=== PATIENT | male | born 1975 | race Caucasian/White ===

== ENCOUNTER 2019-12-11 18:41 | Observation (INO) ==
[2019-12-11] MEDS ORDERED: NICOTINE 21 MG/24 HR PATCH TRANSDERM PRN (22:21)
[2019-12-11] MEDS ORDERED: DEXTROSE 50% 25 GM/50 ML VIAL IV PRN (22:21)
[2019-12-11] MEDS ORDERED: MORPHINE 4 MG/1 ML VIAL IV PRN (22:21)
[2019-12-11] MEDS ORDERED: GLUCAGON 1 MG VIAL IM PRN (22:21)
[2019-12-11] MEDS ORDERED: diphenhydrAMINE CAP 25 MG CAPSULE PO PRN (22:21)
[2019-12-11] MEDS ORDERED: guaiFENesin/DM ER 600-30 MG TABLET PO PRN (22:21)
[2019-12-11] MEDS ORDERED: ONDANSETRON 4 MG/2 ML VIAL IV PRN (22:21)
[2019-12-11] MEDS ORDERED: hydrALAZINE 20 MG/1 ML VIAL IV PRN (22:21)
[2019-12-11] MEDS ORDERED: ACETAMINOPHEN 325 MG TABLET PO PRN (22:21)
[2019-12-11 23:35] LABS: Basophils # 0.1 10*3/uL (0.0-0.2); Basophils % 0.6 % (0.0-0.8); Eosinophils # 0.5 10*3/uL (0.0-0.87); Eosinophils % 6.2 % (0.00-10.9); Hematocrit 36.9 VOL% (42.0-52.0); Hemoglobin 12.6 GM/DL (14.0-18.0); Immature Granulocytes % 0.2 %; Immature Granulocytes Absolute 0.02 #; Lymphocytes # 4.1 10*3/uL (1.4-4.0); Lymphocytes % 49.2 % (21.2-54.2); Mean Corpuscular HGB Conc 34.1 GM/DL (32-36); Mean Corpuscular Volume 94.9 FL (87-102); Mean Platelet Volume 9.2 FL (9.6-12.0); Neutrophils % 37.8 % (38.7-73.9); Platelet Count 203 T/CUMM (130-400); Red Blood Count 3.89 MC/CUMM (3.8-5.5); Red Cell Distribution Width 13.1 % (9.3-17.3); White Blood Count 8.4 T/CUMM (4-12)
[2019-12-11 23:56] LABS: Albumin 3.7 G/DL (3.4-5.0); Bilirubin,Total 0.7 MG/DL (0.2-1.0); Calcium 8.8 MG/DL (8.5-10.1); Osmolality,Calculated 271.7 MOS/KG (273-304); Risk Ratio 3.29; Thyroid Stimulating Hormone 2.26 uIU/ml (0.358-3.74); VLDL CHOLESTEROL 20.2 MG/DL
[2019-12-11 23:57] LABS: Band Neutrophils 1 % (0-10); Eosinophils 5 % (0-10); Lymphocytes 45 % (20-55); Platelet Estimate Normal; Segmented Neutrophils 46 % (50-85); Total Cells Counted 100
[2019-12-12] MEDS: ALBUTEROL/IPRATROPIUM 3 ML NEB RESP TX SCH ×4 (00:42→19:45)
[2019-12-12] MEDS: ASPIRIN 325 MG TABLET PO SCH (08:25)
[2019-12-12 13:27] LABS: Bilirubin,Urine Negative (Negative); Blood, Urine Negative (Negative); Glucose,Urine (UA) Negative (Negative); Ketones,Urine Negative (Negative); Mucus,Urine Occasional /LPF (Occasional); Nitrite,Urine Negative (Negative); Protein,Urine Negative; RBC,Urine <1 /HPF (0-4); Urine Appearance CLEAR (Clear); Urine Color Yellow (Yellow); Urine Specific Gravity 1.017 (1.001-1.035); WBC,Urine <1 /HPF (0-6)
[2019-12-12] MEDS ORDERED: MELATONIN 3 MG TABLET PO PRN (17:58)
[2019-12-13 06:01] LABS: Basophils # 0.1 10*3/uL (0.0-0.2); Basophils % 0.6 % (0.0-0.8); Eosinophils # 0.6 10*3/uL (0.0-0.87); Eosinophils % 6.9 % (0.00-10.9); Hematocrit 37.5 VOL% (42.0-52.0); Hemoglobin 12.8 GM/DL (14.0-18.0); Immature Granulocytes % 0.5 %; Immature Granulocytes Absolute 0.04 #; Lymphocytes # 3.3 10*3/uL (1.4-4.0); Lymphocytes % 41.2 % (21.2-54.2); Mean Corpuscular HGB Conc 34.1 GM/DL (32-36); Mean Corpuscular Volume 96.2 FL (87-102); Mean Platelet Volume 9.3 FL (9.6-12.0); Monocytes % 5.1 % (1.7-12.7); Neutrophils % 45.7 % (38.7-73.9); Platelet Count 206 T/CUMM (130-400); Red Cell Distribution Width 13.2 % (9.3-17.3); White Blood Count 8.1 T/CUMM (4-12)
[2019-12-13 06:22] LABS: Calcium 8.7 MG/DL (8.5-10.1); Osmolality,Calculated 277.4 MOS/KG (273-304)
[2019-12-13 07:35] VITALS: BP 113/63
[2019-12-13] MEDS: ALBUTEROL/IPRATROPIUM 3 ML NEB RESP TX SCH ×2 (07:55)
[2019-12-13] MEDS: ASPIRIN 325 MG TABLET PO SCH (09:41)
== END 2019-12-13 11:39 | disposition home or self-care (01) ==
LOC: SUATTDRO 20:54 → INTOOBSV 20:54 → N.TELEN 20:54
PROVIDERS: ADMIT Internal Medicine; ATTEND Internal Medicine Geriatric Medicine